=== PATIENT | female | born 1995 | race Caucasian/White ===

== ENCOUNTER 2016-12-25 18:30 | Emergency (ER) | payer BC ==
[~2016-12-25] VITALS: Ht 157.5 cm; Wt 54.4 kg
[~2016-12-25 18:30] MED LIST: IBUPROFEN800 MG PO; PRENATAL VITAM1 EAC2 PO; ZOFRAN ODT4 MG PO
[2016-12-25 19:57] LABS: HEMATOCRIT 48.1 % (36.0-46.0); MCH 29.1 PG (29.0-34.0); MCHC 33.9 G/DL (30.0-36.0); MCV 85.9 FL (83-99); MEAN PLAT.VOLUME 9.7 uM^3 (9.5-12.4); PLATELET COUNT 230 K/uL (156-360); RBC DIS.WIDTH-CV 11.9 % (11.8-14.6); RBC DIS.WIDTH-SD 37.2 % (39-53)
[2016-12-25 20:08] LABS: CHLORIDE 104 mEq/L (99-109)
[2016-12-25 20:09] LABS: SODIUM 139 mEq/L (136-147)
[2016-12-25 20:10] LABS: GLUCOSE 87 mg/dL (70-99)
[2016-12-25 20:12] LABS: ANION GAP 14 MEQ/L (2-14)
[2016-12-25 20:14] LABS: GFR ESTIMATE (CALCULATED) > 59 mL/min/
[2016-12-25 20:20] LABS: TROP-I INTERPRETATION NEGATIVE; TROPONIN-I < 0.01 ng/mL (0.0-0.30); UREA NITROGEN (BUN) 14 mg/dL (9-23)
[2016-12-25 20:31] LABS: D-DIMER ELISA < 150.00 ng/mLDDU (<230)
[2016-12-25 20:50] LABS: QUANTITATIVE HCG < 4.0 MIU/ML
[2016-12-25 23:40] LABS: TROP-I INTERPRETATION NEGATIVE; TROPONIN-I < 0.01 ng/mL (0.0-0.30)
[2016-12-26 00:46] VITALS: BP 116/71
== END 2016-12-26 00:47 | disposition home or self-care (01) ==
LOC: EME 18:30
PROVIDERS: Physician Assistant
DX: R00.2 Palpitations (principal)
CPT/HCPCS: 71020; 80048; 84484; 84702; 85027; 85379; 93005; 99281; 99284; J7030

== ENCOUNTER 2017-09-22 15:03 | Outpatient (CLI) | payer OTHER ==
[~2017-09-22] VITALS: Ht 157.5 cm; Wt 61.4 kg
[2017-09-22 15:05] VITALS: BP 125/90
[2017-09-22 15:40] VITALS: BP 144/93
[2017-09-22 15:49] VITALS: BP 142/83
[2017-09-22 15:55] VITALS: BP 142/78
== END 2017-09-22 16:05 | disposition home or self-care (01) ==
LOC: LDRP-OP 15:03 → 2WEST 15:04
DX: O47.03 False labor before 37 completed weeks of gestation, third trimester (principal); Z3A.35 35 weeks gestation of pregnancy
CPT/HCPCS: 59025; G0378

== ENCOUNTER 2017-11-01 11:40 | Inpatient (IN) | payer OTHER ==
[~2017-11-01] VITALS: Ht 157.5 cm; Wt 66.6 kg
[2017-11-01] VITALS (10 sets, daily range): BP systolic 120–143; BP diastolic 77–97
[2017-11-01 14:06] LABS: AMPHETAMINE NEGATIVE (500 ng/mL); BARBITURATES NEGATIVE (200 ng/mL); BENZODIAZEPINES NEGATIVE (150 ng/mL); BUPRENORPHINE NEGATIVE (10 ng/mL); COCAINE NEGATIVE (150 ng/mL); METHADONE NEGATIVE (200 ng/mL); METHAMPHETAMINE NEGATIVE (500 ng/mL); OPIATES (MORPHINE) NEGATIVE (100 ng/mL); OXYCODONE NEGATIVE (100 ng/mL); PHENCYCLIDINE NEGATIVE (25 ng/mL); PROPOXYPHENE NEGATIVE (300 ng/mL); THC CANNABINOIDS NEGATIVE (50 ng/mL); TRICYCLIC ANTIDEPRESSANTS NEGATIVE (300 ng/mL)
[2017-11-01 14:52] LABS: BASOPHIL (%) 0.2 % (0-1); EOSINOPHIL (%) 0.2 % (0-5); HEMATOCRIT 39.1 % (36.0-46.0); HEMOGLOBIN 13.2 G/DL (11.9-15.5); IMMATURE GRANULOCYTE (%) 0.4 % (0.0-0.7); LYMPHOCYTE (%) 11.9 % (15-42); LYMPHOCYTE COUNT 1.5 K/uL (1.0-2.8); MCH 28.8 PG (29.0-34.0); MCHC 33.8 G/DL (30.0-36.0); MCV 85.4 FL (83-99); MONOCYTE (%) 3.8 % (3-12); MONOCYTE COUNT 0.5 K/uL (0-0.8); NEUTROPHIL (%) 83.5 % (45-76); NEUTROPHIL COUNT 10.9 K/uL (1.8-6.4); PLATELET COUNT 151 K/uL (156-360); RBC DIS.WIDTH-CV 13.5 % (11.8-14.6); RBC DIS.WIDTH-SD 41.5 % (39-53); RED BLOOD COUNT 4.58 M/uL (3.80-5.20)
[2017-11-01 15:10] LABS: UR CREATININE CONCENTRATION 73.4 MG/DL
[2017-11-01 15:15] LABS: ALBUMIN 3.8 G/DL (3.2-4.8); ALKALINE PHOSPHATASE 78 IU/L (3-129); ALT (GPT) 6 IU/L (3-49); AST (GOT) 15 IU/L (2-34); CHLORIDE 106 MEQ/L (99-109); CREATININE 0.5 MG/DL (0.6-1.3); GFR ESTIMATE (CALCULATED) > 59 mL/min/; GLUCOSE 88 mg/dL (70-99); POTASSIUM 3.7 MEQ/L (3.7-5.4); SODIUM 134 MEQ/L (136-147); TOTAL BILIRUBIN 0.4 MG/DL (0.0-1.0); TOTAL PROTEIN 6.9 G/DL (6.4-8.3); UREA NITROGEN (BUN) 10 mg/dL (9-23)
[2017-11-01] MEDS ORDERED: IBUPROFEN800 MG PO (15:24)
[2017-11-02 07:23] VITALS: BP 119/80
[2017-11-02 15:26] VITALS: BP 115/83
== END 2017-11-02 19:45 | disposition home or self-care (01) | DRG 775 ==
LOC: LDRP-OP 11:40 → 2WEST 11:42 → LDRP-OP 11-08 16:17
PROVIDERS: Nurse Practitioner
PROC: 10E0XZZ Delivery of Products of Conception, External Approach (ICD-10-PCS; principal; 2017-11-01)
DX: O75.89 Other specified complications of labor and delivery (principal); Z3A.41 41 weeks gestation of pregnancy; Z14.1 Cystic fibrosis carrier; Z37.0 Single live birth
CPT/HCPCS: 80053; 82570; 84156; 85025; J2590